=== PATIENT | male | born 1945 | race Caucasian/White ===

== ENCOUNTER 2016-10-01 19:46 | Emergency (ER) | payer OTHER, MEDICAID ==
[~2016-10-01] VITALS: Ht 162.6 cm; Wt 76.0 kg
[~2016-10-01 19:46] MED LIST: CIPR500T4 PO; CYCL-319 PO; FINA5TAB PO; HYDR-3498 PO; IBUP-1542 PO; NAPR-260 PO; TAMS-14 PO
[2016-10-01 19:48] VITALS: Ht 162.6 cm; Wt 76.0 kg
--- NOTE | 2016-10-01 20:21 | ERD ---
ER Documentation Chief Complaint Date/Time DATE: 10/01/16 TIME: 20:20 Chief Complaint blood in urine for past few days no pain HPI 71-year-old male presents here in emergency department for complaints of episodes of blood in the urine for the last 3 days. Patient has on and off episodes of hematuria. Patient denies any pain. Patient denies dysuria. Patient has history of BPH. Patient denies any obstruction in the urine. Patient denies any flank pain. Patient denies any abdominal pain. ROS All systems reviewed and are negative except as per history of present illness. Medications Home Meds Active Scripts Hydrocodone Bit-Acetaminophen* ([place]*) 5-325 Mg Tab, 1 TAB PO Q6 Y for PAIN, # 10 TAB Prov:OMAYRA WOODSON PA-C 07/15/15 Cyclobenzaprine Hcl* (Cyclobenzaprine Hcl*) 10 Mg Tablet, 10 MG PO TID, #15 TAB Prov:OMAYRA WOODSON PA-C 07/15/15 Naproxen* (Naprosyn*) 500 Mg Tablet, 500 MG PO BID Y for PAIN AND/OR INFLAMMATION, #30 TAB Prov:OMAYRA WOODSON PA-C 07/15/15 Ciprofloxacin Hcl* (Ciprofloxacin Hcl*) 500 Mg Tablet, 500 MG PO BID for 10 Days , TAB Prov:OMAYRA WOODSON PA-C 07/15/15 Ibuprofen* (Motrin*) 600 Mg Tab, 600 MG PO Q6, #30 TAB Prov:CHANTAL DE SOUZA PA-C 11/10/14 Reported Medications Finasteride* (Proscar*) 5 Mg Tablet, 5 MG PO DAILY, TAB 05/17/14 Tamsulosin Hcl* (Flomax*) 0.4 Mg Cap.er.24h, 0.4 MG PO HS, CAP 05/17/14 Allergies Allergies: Coded Allergies: No Known Allergies (Unverified Allergy, Unknown, 11/10/14) PMhx/Soc History of Surgery: No Anesthesia Reaction: No Hx Neurological Disorder: No Hx Respiratory Disorders: No Hx Cardiac Disorders: Yes (HTN) Hx Psychiatric Problems: No Hx Miscellaneous Medical Probl: Yes (BPH, gerd, hypercholesterolemia) Hx Alcohol Use: No Hx Substance Use: No Hx Tobacco Use: No Smoking Status: Never smoker FmHx Family History: No coronary disease, No diabetes, No other Physical Exam Vitals Vital Signs Date Time Temp Pulse Resp B/P Pulse Ox O2 Delivery O2 Flow Rate FiO2 10/01/16 19:48 97.8 59 18 176/80 97 Physical Exam GENERAL: The patient is well developed and appropriate for usual state of health, in no apparent distress. CHEST: Clear to auscultation bilaterally. There are no rales, wheezes or rhonchi. HEART: Regular rate and rhythm. No murmurs, clicks, rubs or gallops. No S3 or S4. ABDOMEN: Soft, nontender and nondistended. Good bowel sounds. No rebound or guarding. No gross peritonitis. No gross organomegaly or masses. No Sharma sign or McBurney point tenderness. BACK: No midline or flank tenderness. EXTREMITIES: Equal pulses bilaterally. There is no peripheral clubbing, cyanosis or edema. No focal swelling or erythema. Full range of motion. Grossly neurovascularly intact. NEURO: Alert and oriented. Cranial nerves 2-12 intact. Motor strength in all 4 extremities with 5/5 strength. Sensation grossly intact. Normal speech and gait. SKIN: There is no apparent rash or petechia. The skin is warm and dry. HEMATOLOGIC AND LYMPHATIC: There is no evidence of excessive bruising or lymphedema. No gross cervical, axillary, or inguinal lymphadenopathy. Result Diagram: 10/01/16203010/01/162030 Results 24 hrs Laboratory Tests Test 10/01/16 20:21 10/01/16 20:31 Urine Color LT. YELLOW Urine Clarity CLEAR Urine pH 6.0 Urine Specific [place] 1.015 Urine Ketones NEGATIVE Urine Nitrite NEGATIVE Urine Bilirubin NEGATIVE Urine Urobilinogen 0.2 E.U./dL Urine Leukocyte Esterase 3+ Urine Microscopic RBC >200/HPF Urine Microscopic WBC >200/HPF Urine Squamous Epithelial Cells FEW Urine Bacteria MANY Urine Hemoglobin 3+ Urine Glucose NEGATIVE% Urine Total Protein NEGATIVE White Blood Count 8.110^3/ul Red Blood Count 4.9010^6/ul Hemoglobin 15.3g/dl Hematocrit 42.7% Mean Corpuscular Volume 87.1fl Mean Corpuscular Hemoglobin 31.2pg Mean Corpuscular Hemoglobin Concent 35.8g/dl Red Cell Distribution Width 12.7% Platelet Count 60555^3/UL Mean Platelet Volume 11.7fl Neutrophils % 51.4% Lymphocytes % 34.6% Monocytes % 8.0% Eosinophils % 5.0% Basophils % 0.5% Nucleated Red Blood Cells % 0.0/100WBC Neutrophils # 4.210^3/ul Lymphocytes # 2.810^3/ul Monocytes # 0.710^3/ul Eosinophils # 0.410^3/ul Basophils # 0.010^3/ul Nucleated Red Blood Cells # 0.010^3/ul Sodium Level 143mmol/L Potassium Level 4.1mmol/L Chloride Level 112mmol/L Carbon Dioxide Level 27mmol/L Anion Gap 8 Blood Urea Nitrogen 19mg/dl Creatinine 0.82mg/dl Glucose Level 127mg/dl Calcium Level 9.4mg/dl Total Bilirubin 0.1mg/dl Direct Bilirubin 0.00mg/dl Indirect Bilirubin 0.1mg/dl Aspartate Amino Transf (AST/SGOT) 38IU/L Alanine Aminotransferase (ALT/SGPT) 51IU/L Alkaline Phosphatase 70IU/L Total Protein 7.4g/dl Albumin 4.1g/dl Globulin 3.30g/dl Albumin/Globulin Ratio 1.24 Rocephin was given for treatment of urinary tract infection. PROCEDURE: CT Abdomen and Pelvis without contrast. CLINICAL INDICATION: Abdominal pain and hematuria. TECHNIQUE: A CT scan of the abdomen and pelvis was performed without intravenous contrast. Coronal and sagittal reformatted images were generated. Images were reviewed on a high-resolution PACS workstation. CTDIvol: 9.81 mGy. DLP: 553.79 mGy-cm. One or more of the following dose reduction techniques were used: - Automated exposure control. - Adjustment of the mA and/or kV according to patient size. - Use of iterative reconstruction technique. COMPARISON: None. FINDINGS: The lung bases are clear. Evaluation of the abdominal and pelvic viscera is limited by the lack of oral and intravenous contrast. The liver is unremarkable. The gallbladder is normal in appearance. The common bile duct is not dilated. The spleen is not enlarged. No pancreatic lesion is identified and there is no pancreatic ductal dilatation. The adrenal glands are unremarkable. The kidneys are normal in size. There is minimal symmetric perinephric fat stranding, probably age-related. No hydronephrosis is seen. No urinary stone is identified. The small and large bowel are normal in caliber. There is no bowel wall thickening.There is mild to moderate sigmoid colon diverticulosis. The appendix is normal. The urinary bladder is unremarkable. The prostate gland is enlarged. No lymphadenopathy is identified. There is no ascites. No pneumoperitoneum is seen. There are mild arterial calcifications. No suspicious osseous lesion is idenitified. IMPRESSION: 1. No inflammation, mass, or lymphadenopathy. 2. Normal appendix. 3. No obstructive uropathy or urinary stone. 4. Enlarged prostate gland. Correlation with PSA level is recommended. 5. Mild to moderate sigmoid colon diverticulosis. 6. Mild atherosclerotic calcifications. 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 Patient is currently on medication for this. no kidney stones, no symptoms of any infected stone. There is low suspicion for abdominal emergencies at this time. Patients abdominal exam is normal at this time. Patients radiology exam does not show any abdominal emergencies at this time. There is low suspicion for appendicitis, cholecystitis, abdominal aortic aneurysms or peritonitis at this time. There is low suspicion for sepsis. Patient appears well and is hemodynamically stable. Disposition: Home. Condition: Stable Prescription ciprofloxacin, Pyridium. Instructions: Patient is advised to take medications as prescribed. Patient is advised to rest, increase fluid intake and do see urology specialist. Patient is advised that if symptoms are worse, severe abdominal pain, uncontrolled vomiting, high fever, severe flank pain, worst signs and symptoms, to return to the emergency department immediately. Otherwise, patient can follow up with primary care doctor in 5-7 days. Departure Diagnosis: Primary Impression: Cystitis Condition: Stable Patient Instructions: Cystitis Additional Instructions: : Patient is advised to take medications as prescribed. Patient is advised to rest, increase fluid intake and do see urology specialist. Patient is advised that if symptoms are worse, severe abdominal pain, uncontrolled vomiting, high fever, severe flank pain, worst signs and symptoms, to return to the emergency department immediately. Otherwise, patient can follow up with primary care doctor in 5-7 days. GEORGIE KEMP NP October 01, 2016 20:21
[2016-10-01 20:37] LABS: ADD SCAN DIFF NO
[2016-10-01 20:40] LABS: BASOPHILS % 0.5 % (0.0-2.0); EOSINOPHILS # 0.4 10^3/ul (0.0-0.5); HEMATOCRIT 42.7 % (42.0-52.0); HEMOGLOBIN 15.3 g/dl (14.0-18.0); LYMPHOCYTES # 2.8 10^3/ul (0.8-2.9); LYMPHOCYTES % 34.6 % (15.0-51.0); MEAN CORPUSCULAR HEMOGLOBIN 31.2 pg (29.0-33.0); MEAN CORPUSCULAR HGB CONC 35.8 g/dl (32.0-37.0); MEAN CORPUSCULAR VOLUME 87.1 fl (82.0-101.0); MEAN PLATELET VOLUME 11.7 fl (7.4-10.4); MONOCYTE # 0.7 10^3/ul (0.3-0.9); NEUTROPHIL # 4.2 10^3/ul (1.6-7.5); NEUTROPHILS % 51.4 % (39.0-77.0); PLATELET COUNT 203 10^3/UL (140-415); RED CELL DISTRIBUTION WIDTH 12.7 % (11.5-14.5); WHITE BLOOD COUNT 8.1 10^3/ul (4.8-10.8)
[2016-10-01 20:40] LABS: ADD UMIC YES; URINE BILIRUBIN (Dip) NEGATIVE (NEGATIVE); URINE BLOOD (Dip) 3+ (NEGATIVE); URINE COLOR LT. YELLOW (YELLOW); URINE GLUCOSE (Dip) NEGATIVE (NEGATIVE); URINE KETONES (Dip) NEGATIVE (NEGATIVE); URINE LEUKOCYTE ESTERASE (Dip) 3+ (NEGATIVE); URINE NITRITE (Dip) NEGATIVE (NEGATIVE); URINE TOTAL PROTEIN (Dip) NEGATIVE (NEGATIVE); URINE UROBILINOGEN (Dip) 0.2 E.U./dL (0.1-1.0)
[2016-10-01 21:02] LABS: ALBUMIN 4.1 g/dl (3.3-4.9)
[2016-10-01 21:03] LABS: POTASSIUM 4.1 mmol/L (3.5-5.1)
[2016-10-01 21:05] LABS: ALBUMIN/GLOBULIN RATIO 1.24; BILIRUBIN,INDIRECT 0.1 mg/dl (0-1.1); BILIRUBIN,TOTAL 0.1 mg/dl (0.2-1.3); CREATININE 0.82 mg/dl (0.61-1.24); TOTAL PROTEIN 7.4 g/dl (6.1-8.1)
[2016-10-01 21:06] LABS: CALCIUM 9.4 mg/dl (8.4-10.2)
[2016-10-01 21:09] LABS: BACTERIA,URINE MANY; SQUAMOUS EPITHELIAL CELL,UR FEW; URINE RBCS >200 /HPF (0)
--- NOTE | 2016-10-01 22:05 | RADRPT ---
PROCEDURE: CT Abdomen and Pelvis without contrast. CLINICAL INDICATION: Abdominal pain and hematuria. TECHNIQUE: A CT scan of the abdomen and pelvis was performed without intravenous contrast. Moraes l and sagittal reformatted images were generated. Images were reviewed on a high-resolution PACS wor kstation. CTDIvol: 9.81 mGy. DLP: 553.79 mGy-cm. One or more of the following dose reduction techniques were used: - Automated exposure control. - Adjustment of the mA and/or kV according to patient size. - Use of iterative reconstruction technique. COMPARISON: None. FINDINGS: The lung bases are clear. Evaluation of the abdominal and pelvic viscera is limited by the lack of oral and intravenous contra st. The liver is unremarkable. The gallbladder is normal in appearance. The common bile duct is not dila jony. The spleen is not enlarged. No pancreatic lesion is identified and there is no pancreatic ducta l dilatation. The adrenal glands are unremarkable. The kidneys are normal in size. There is minimal symmetric perinephric fat stranding, probably age-r elated. No hydronephrosis is seen. No urinary stone is identified. The small and large bowel are normal in caliber. There is no bowel wall thickening.There is mild to moderate sigmoid colon diverticulosis. The appendix is normal. The urinary bladder is unremarkable. The prostate gland is enlarged. No lymphadenopathy is identified. There is no ascites. No pneumoperitoneum is seen. There are mild a rterial calcifications. No suspicious osseous lesion is idenitified. IMPRESSION: 1. No inflammation, mass, or lymphadenopathy. 2. Normal appendix. 3. No obstructive uropathy or urinary stone. 4. Enlarged prostate gland. Correlation with PSA level is recommended. 5. Mild to moderate sigmoid colon diverticulosis. 6. Mild atherosclerotic calcifications. RPTAT: HTAR .Marlo Sutherland MD, MD Date Time Electronically viewed and signed by .Marlo Sutherland MD, on 10/01/2016 22:05 .R/
[2016-10-01] MEDS ORDERED: PHEN-538 PO (22:19)
[2016-10-01] MEDS ORDERED: CIPR500T4 PO (22:19)
[2016-10-01] MEDS ORDERED: CEFTRIAXONE 1 GM INJ IM ONE (22:30)
[2016-10-01 23:03] VITALS: BP 170/76; PULSE 63; RESP 16; TEMP 97.3
== END 2016-10-01 23:04 | disposition home or self-care (01) ==
LOC: FTE 19:46
DX: N30.90 Cystitis, unspecified without hematuria (principal); I10 Essential (primary) hypertension
CPT/HCPCS: 74176; 80053; 81001; 85025; J0696; 36415; 96372

== ENCOUNTER 2016-10-19 09:59 | Inpatient (IN) | payer OTHER, MEDICAID ==
[~2016-10-19] VITALS: Ht 157.5 cm; Wt 70.5 kg
[~2016-10-19 09:59] MED LIST changes: +PHEN-538 PO
[2016-10-19] MEDS ORDERED: ONDANSETRON 4 MG INJ IV STA (10:33)
[2016-10-19] MEDS ORDERED: morphine 4 MG/ML VIAL IV STA ×2 (10:33→19:15)
[2016-10-19] MEDS ORDERED: SOD CHLORIDE 0.9% 1,000 ML IV STA (10:33)
[2016-10-19] MEDS ORDERED: FENO145T19 PO (11:00)
--- NOTE | 2016-10-19 11:08 | RADRPT ---
PROCEDURE: Chest Radiograph. CLINICAL INDICATION: Abdominal pain TECHNIQUE: Single frontal chest radiograph. COMPARISON: Chest radiograph 05/17/2014 FINDINGS: Heart size is within normal limits. Atherosclerotic calcifications are present. No infiltrate or effusion is seen. The bones are intact. IMPRESSION: 1. No evidence of acute cardiopulmonary disease. 2. Atherosclerotic vascular disease. RPTAT: KK .Shaan Cabral MD, MD Date Time Electronically viewed and signed by .Shaan Cabral MD, on 10/19/2016 11:08 .B/
[2016-10-19 11:15] LABS: ADD SCAN DIFF NO
[2016-10-19 11:26] LABS: BASOPHILS % 0.3 % (0.0-2.0); EOSINOPHILS # 0.3 10^3/ul (0.0-0.5); EOSINOPHILS % 2.5 % (0.0-7.0); HEMATOCRIT 41.6 % (42.0-52.0); HEMOGLOBIN 14.2 g/dl (14.0-18.0); LYMPHOCYTES # 2.1 10^3/ul (0.8-2.9); LYMPHOCYTES % 16.5 % (15.0-51.0); MEAN CORPUSCULAR HEMOGLOBIN 29.8 pg (29.0-33.0); MEAN CORPUSCULAR HGB CONC 34.1 g/dl (32.0-37.0); MEAN CORPUSCULAR VOLUME 87.4 fl (82.0-101.0); MEAN PLATELET VOLUME 12.4 fl (7.4-10.4); MONOCYTE # 1.4 10^3/ul (0.3-0.9); MONOCYTES % 10.6 % (0.0-11.0); NEUTROPHILS % 69.4 % (39.0-77.0); PLATELET COUNT 198 10^3/UL (140-415); RED BLOOD COUNT 4.76 10^6/ul (4.70-6.10); RED CELL DISTRIBUTION WIDTH 13.2 % (11.5-14.5)
[2016-10-19 11:35] LABS: ADD UMIC YES; UR BILIRUBIN (Dip) NEGATIVE (NEGATIVE); UR BLOOD (Dip) TRACE (NEGATIVE); UR CLARITY SLIGHTLY CLOUDY (CLEAR); UR COLOR RED (YELLOW); UR GLUCOSE (Dip) NEGATIVE (NEGATIVE); UR KETONES (Dip) NEGATIVE (NEGATIVE); UR LEUKOCYTE ESTERASE (Dip) 3+ (NEGATIVE); UR NITRITE (Dip) NEGATIVE (NEGATIVE); UR TOTAL PROTEIN (Dip) NEGATIVE (NEGATIVE); UR UROBILINOGEN (Dip) 0.2 E.U./dL (0.1-1.0)
[2016-10-19 11:38] LABS: ALANINE AMINOTRANSFERASE 41 IU/L (13-69); ALBUMIN 4.3 g/dl (3.3-4.9); ALBUMIN/GLOBULIN RATIO 1.95; ALKALINE PHOSPHATASE 63 IU/L (42-121); ANION GAP 13 (8-16); ASPARTATE AMINO TRANSFERASE 24 IU/L (15-46); BILIRUBIN,INDIRECT 0.3 mg/dl (0-1.1); BILIRUBIN,TOTAL 0.3 mg/dl (0.2-1.3); BLOOD UREA NITROGEN 18 mg/dl (7-20); CALCIUM 9.4 mg/dl (8.4-10.2); CARBON DIOXIDE 23 mmol/L (21-31); CHLORIDE 111 mmol/L (97-110); CREATININE 0.87 mg/dl (0.61-1.24); GLUCOSE 102 mg/dl (70-220); POTASSIUM 4.1 mmol/L (3.5-5.1); SODIUM 143 mmol/L (135-144); TOTAL PROTEIN 6.5 g/dl (6.1-8.1)
--- NOTE | 2016-10-19 11:50 | RADRPT ---
PROCEDURE: CT scan of the abdomen and pelvis without IV contrast. CLINICAL INDICATION: Abdominal pain over 5 days. TECHNIQUE: Thin section axial, coronal and sagittal images were performed through the abdomen and pelvis without contrast. Radiation Dose: CTDI: 16 0.02 and DLP: 904.3 One or more of the following dose reduction techniques were used: - Automated exposure control. - Adjustment of the mA and/or kV according to patient size. Use of iterative reconstruction technique. COMPARISON: Chest x-ray 06/09/2016 06:18 a.m. FINDINGS: Soft tissues: Normal. Lungs and pleural spaces: There is peripheral atelectasis in the right and left lower lobes. The shubham ngs are overall hyperinflated and this may reflect an excellent inspiration. No pleural effusion is identified. Heart: The heart is normal in size. No pericardial effusion is identified. The liver, common bile duct and gallbladder: Normal. Gastrointestinal: There is no evidence of a hiatal hernia. The stomach is normal. The small bowel loops have a normal caliber. There are diverticula in the descending colon. There are diverticula mucosal thickening in the sigmoid colon with stranding in the pericolic fat consistent with divertic ulitis. No diverticular abscess or microperforation is identified. There is no evidence of pneumop eritoneum. The vermiform appendix is normal. There are bilateral inguinal hernias which contain fat. Pancreas: Normal. Kidneys, bladder and adrenal glands : Normal. Spleen: Normal. Lymph nodes: Normal. Reproductive system and pelvis : The seminal vesicles are normal. The prostate gland is enlarged me asuring 5.1 x 4.8 cm. There is a left varicocele. Bony elements: There are degenerative osteophytes in the thoracic and lumbar spine. There is modera te disk space narrowing at L1-2 the with ventral spondylosis. There is mild disk space narrowing an d ventral spondylosis at L2-3 and L3-4. There is moderately severe disk space narrowing at L4-5 and severe disk space narrowing at L5-S1 with bilateral bony nerve root canal stenosis at L5-S1. Vasculature: There are vascular calcifications in the abdominal aorta and common iliac arteries. IMPRESSION: 1. Acute diverticulitis of the sigmoid colon. 2. Diverticulosis of the descending colon. Normal vermiform appendix. 3. Enlarged prostate. Correlate with PSA level. 4. Left varicocele. 5. Bilateral inguinal hernias which contain fat. 6. Atherosclerotic vascular disease. 7. Findings were phoned to Dr. Colmenares. RPTAT:AAJJ Anthony Knox Physician Date Time Electronically viewed and signed by Anthony Knox, Physician on 10/19/2016 11:50 JM/
[2016-10-19 11:52] LABS: TROPONIN-I < 0.012 ng/ml (0.00-0.12)
[2016-10-19] MEDS ORDERED: AMPICILLIN/SULB 3 GM/NS (PMX) 100 ML IVPB ONE (12:00)
[2016-10-19 12:18] LABS: UR BACTERIA MODERATE; URINE RBCS 0-2 /HPF (0)
--- NOTE | 2016-10-19 13:49 | ERA ---
ER Documentation Chief Complaint Date/Time DATE: 10/19/16 TIME: 13:47 Chief Complaint Complains of abdominal x 3 days HPI Patient is a 71-year-old male with no medical problems who presents with abdominal pain. The abdominal pain started on Sunday. The pain is constant. He has pain with bowel movements. He has pain with urination which radiates into his back. He has no fevers. He has no vomiting or diarrhea. He tried ibuprofen for his pain. His doctor is Dr. Saleh. ROS All systems reviewed and are negative except as per history of present illness. Medications Home Meds Reported Medications Fenofibrate Nanocrystallized* (Fenofibrate*) 145 Mg Tablet, 145 MG PO DAILY, TAB 10/19/16 Finasteride* (Proscar*) 5 Mg Tablet, 5 MG PO DAILY, TAB 05/17/14 Tamsulosin Hcl* (Flomax*) 0.4 Mg Cap.er.24h, 0.4 MG PO HS, CAP 05/17/14 Discontinued Scripts Phenazopyridine Hcl* (Pyridium*) 200 Mg Tab, 200 MG PO TID Y for URINARY PAIN, # 6 TAB Prov:GEOGRIE KEMP NP 10/01/16 Ciprofloxacin Hcl* (Ciprofloxacin Hcl*) 500 Mg Tablet, 500 MG PO BID for 10 Days , TAB Prov:GEORGIE KEMP NP 10/01/16 Hydrocodone Bit-Acetaminophen* ([place]*) 5-325 Mg Tab, 1 TAB PO Q6 Y for PAIN, # 10 TAB Prov:OMAYRA WOODSON PA-C 07/15/15 Cyclobenzaprine Hcl* (Cyclobenzaprine Hcl*) 10 Mg Tablet, 10 MG PO TID, #15 TAB Prov:OMAYRA WOODSON PA-C 07/15/15 Naproxen* (Naprosyn*) 500 Mg Tablet, 500 MG PO BID Y for PAIN AND/OR INFLAMMATION, #30 TAB Prov:OMAYRA WOODSON PA-C 07/15/15 Ciprofloxacin Hcl* (Ciprofloxacin Hcl*) 500 Mg Tablet, 500 MG PO BID for 10 Days , TAB Prov:OMAYRA WOODSON PA-C 07/15/15 Ibuprofen* (Motrin*) 600 Mg Tab, 600 MG PO Q6, #30 TAB Prov:CHANTAL DE SOUZA PA-C 11/10/14 Allergies Allergies: Coded Allergies: No Known Allergies (Unverified Allergy, Unknown, 10/19/16) PMhx/Soc History of Surgery: No Anesthesia Reaction: No Hx Neurological Disorder: No Hx Respiratory Disorders: No Hx Cardiac Disorders: Yes (HTN) Hx Psychiatric Problems: No Hx Miscellaneous Medical Probl: Yes (BPH, gerd, hypercholesterolemia) Hx Alcohol Use: No Hx Substance Use: No Hx Tobacco Use: No Smoking Status: Never smoker FmHx Family History: No diabetes Physical Exam Vitals Vital Signs Date Time Temp Pulse Resp B/P Pulse Ox O2 Delivery O2 Flow Rate FiO2 10/19/16 12:00 61 20 129/67 98 Room Air 10/19/16 10:04 98.3 83 20 127/59 96 Physical Exam Const: Moderate distress secondary to pain Head: Atraumatic Eyes: Normal Conjunctiva ENT: Normal External Ears, Nose and Mouth. Neck: Full range of motion..~ No meningismus. Resp: Clear to auscultation bilaterally Cardio: Regular rate and rhythm, no murmurs Abd: Diffuse tenderness to palpation without rebound or guarding Skin: No petechiae or rashes Back: No midline or flank tenderness Ext: No cyanosis, or edema Neur: Awake and alert Psych: Normal Mood and Affect Result Diagram: 10/19/16 1050 10/19/16 1050 Results 24 hrs Laboratory Tests Test 10/19/16 10:50 White Blood Count 13.010^3/ul Red Blood Count 4.7610^6/ul Hemoglobin 14.2g/dl Hematocrit 41.6% Mean Corpuscular Volume 87.4fl Mean Corpuscular Hemoglobin 29.8pg Mean Corpuscular Hemoglobin Concent 34.1g/dl Red Cell Distribution Width 13.2% Platelet Count 40215^3/UL Mean Platelet Volume 12.4fl Neutrophils % 69.4% Lymphocytes % 16.5% Monocytes % 10.6% Eosinophils % 2.5% Basophils % 0.3% Nucleated Red Blood Cells % 0.0/100WBC Neutrophils # 9.010^3/ul Lymphocytes # 2.110^3/ul Monocytes # 1.410^3/ul Eosinophils # 0.310^3/ul Basophils # 0.010^3/ul Nucleated Red Blood Cells # 0.010^3/ul Urine Color RED Urine Clarity SLIGHTLY CLOUDY Urine pH 5.5 Urine Specific [place] >=1.030 Urine Ketones NEGATIVE Urine Nitrite NEGATIVE Urine Bilirubin NEGATIVE Urine Urobilinogen 0.2 E.U./dL Urine Leukocyte Esterase 3+ Urine Microscopic RBC 0-2/HPF Urine Microscopic WBC 10-25/HPF Urine Bacteria MODERATE Urine Hemoglobin TRACE Urine Glucose NEGATIVE% Urine Total Protein NEGATIVE Sodium Level 143mmol/L Potassium Level 4.1mmol/L Chloride Level 111mmol/L Carbon Dioxide Level 23mmol/L Anion Gap 13 Blood Urea Nitrogen 18mg/dl Creatinine 0.87mg/dl Glucose Level 102mg/dl Calcium Level 9.4mg/dl Total Bilirubin 0.3mg/dl Direct Bilirubin 0.00mg/dl Indirect Bilirubin 0.3mg/dl Aspartate Amino Transf (AST/SGOT) 24IU/L Alanine Aminotransferase (ALT/SGPT) 41IU/L Alkaline Phosphatase 63IU/L Troponin I < 0.012ng/ml Total Protein 6.5g/dl Albumin 4.3g/dl Globulin 2.20g/dl Albumin/Globulin Ratio 1.95 Lipase 106U/L Current Medications Medications (Trade) Dose Ordered Sig/Aaliyah Route PRN Reason Start Time Stop Time Status Last Admin Dose Admin Sodium Chloride (NS) 1,000 ml @ 1,000 mls/hr Q1H STAT IV 10/19/16 10:33 10/19/16 11:32 DC 10/19/16 11:32 Morphine Sulfate (morphine) 4 mg ONCE STAT IV 10/19/16 10:33 10/19/16 10:35 DC 10/19/16 11:34 Ondansetron HCl 4 mg 4 mg ONCE STAT IV 10/19/16 10:33 10/19/16 10:35 DC 10/19/16 11:32 Ampicillin Sodium/ Sulbactam Sodium (Unasyn 3gm/NS (Pmx)) 100 ml @ 100 mls/hr ONCE ONCE IVPB 10/19/16 12:00 10/19/16 12:59 DC 10/19/16 12:22 Procedures/MDM CT scan shows acute diverticulitis and enlarged prostate per radiology. Patient is a 71-year-old male presents with acute abdominal pain. He was found to have acute diverticulitis. He has an elevated white blood cell count as well. The patient was given IV antibiotics. The patient will need admission to the hospital for further treatment given his age. We are attempting to obtain his insurance information and the patient may need to be transferred to another facility. At this point I doubt bowel obstruction, sepsis, appendicitis , or pancreatitis. Departure Diagnosis: Primary Impression: Diverticulitis Qualified Code: K57.92 - Diverticulitis of intestine without perforation or abscess without bleeding, unspecified part of intestinal tract Additional Impression: Abdominal pain Qualified Code: R10.84 - Generalized abdominal pain Condition: Fair LIBERTAD FELIX MD Oct 19, 2016 13:49
[2016-10-19] MEDS ORDERED: SOD CHLORIDE 0.9% 1,000 ML IV SCH (16:28)
--- NOTE | 2016-10-19 16:28 | EN ---
Date/Time of Note Date/Time of Note DATE: 10/19/16 TIME: 16:26 ER Progress Note This patient was signed out to me by her previous physician, . This is a 71-year-old male presents to the ER for abdominal pain and was diagnosed with diverticulitis. The patient was scheduled to be transferred however we have not heard back from the transferring insurance company. We have attempted multiple times over the past 2 hours with no response. The patient will be admitted to the panel physician, HERBERT Parnell DO Oct 19, 2016 16:27
[2016-10-19] MEDS ORDERED: ONDANSETRON 4 MG INJ IV PRN ×2 (16:30→20:00)
[2016-10-19] MEDS ORDERED: ACETAMINOPHEN 325 MG TAB PO PRN (16:30)
[2016-10-19 18:25] VITALS: TEMP 98.1
[2016-10-19] MEDS ORDERED: NACL 0.9% 3 ML SYG IV SCH (20:00)
[2016-10-19] MEDS ORDERED: HYDROmorphONE 1 MG/ML SYG IV PRN (20:00)
[2016-10-19 20:05] VITALS: BP 176/82; PULSE 62; RESP 18
[2016-10-19] MEDS: SOD CHLORIDE 0.9% 1,000 ML IV SCH ×2 (20:42→23:00)
[2016-10-19 21:36] VITALS: BP 141/73; PULSE 66; RESP 18
[2016-10-19] MEDS: CIPROFLOXACIN 400MG/D5W 200 ML IVPB SCH (22:41)
[2016-10-19] MEDS: metroNIDAZOLE 500 MG/NS (PMX) 100 ML IVPB SCH (23:55)
[2016-10-20] MEDS: HYDROmorphONE 1 MG/ML SYG IV PRN ×4 (01:05→20:32)
--- NOTE | 2016-10-20 01:06 | HP ---
Date/Time of Note Date/Time of Note DATE: 10/20/16 TIME: 01:02 Assessment/Plan VTE Prophylaxis VTE Prophylaxis Intervention: ambulation, SCD's Lines/Catheters IV [facility]ter [facility] (from [facility]): Peripheral IV Assessment/Plan Chief Complaint/Hosp Course This is a 71-year-old male being admitted to the [facility] floor for: #1 acute diverticulitis: CT scan shows acute diverticulitis of sigmoid colon. At the current time we will keep the patient n.p.o. IV fluid hydration. Patient did receive a dose of antibiotics in the ED. At the current time will start patient on Cipro and Flagyl IV. IV pain control #2 urinary tract infection: Urinalysis positive for leukoesterase. At the current time patient denies any fevers and he deferred rectal exam at this time. Prostatitis is on the differential as well though based on his symptoms I feel like is less likely. He is already on Cipro and Flagyl for #1 we will continue these medications. Await urine culture. #3 BPH: Patient states that he is being followed as an outpatient regarding his prostate issues. Continue outpatient follow-up #4 elevated blood pressure: Patient denies any history of blood pressure as an outpatient and he has recently seen his primary care doctor where his blood pressure was normal. Will continue to monitor his blood pressures during his hospital stay and start any antihypertensives as needed. #5 DVT GI prophylaxis: SCDs, Protonix. Further treatment strategy as per the clinical course. Problems: HPI/ROS Admit Date/Time Admit Date/Time Oct 19, 2016 at 16:28 Hx of Present Illness Chief complaint: Abdominal pain Patient is a 71-year-old male who presents with abdominal pain. The abdominal pain started on Sunday. The pain is constant. He has pain with bowel movements. He has pain with urination which radiates into his back. He has no fevers. He has no vomiting or diarrhea. He tried ibuprofen for his pain. He denies any blood in the stool. Allergies: NKDA Medications: See JUL ROS Const: Per HPI Eyes : No pain discharge or redness or change in visual acuity ENT: No pain, sore throat, congestion, congestion, dysphagia or discharge Respiratory: No shortness of breath, cough, sputum, wheezing, or pleuritic pain Cardiovascular: No chest pain, palpitation, PND, or edema GI : As per HPI Genitourinary: As per HPI Musculoskeletal: No joint pain, back pain, neck pain, restricted range of motion in neck or joints Skin: No rash, bruising or hives Neuro: No headache, dizziness, syncope, seizure, focal weakness Endocrine: No polyuria, polydipsia, temperature intolerance Psych: No hallucination, depression, anxiety or suicidal ideation PMH/Family/Social Past Medical History BPH Past Surgical History Past Surgical Hx: no surgical history Family History Significant Family History: no pertinent family hx Social History Alcohol Use: none Smoking Status: Former smoker Drug Use: none Exam/Review of Systems Vital Signs Vitals Vital Signs Date Time Temp Pulse Resp B/P Pulse Ox O2 Delivery O2 Flow Rate FiO2 10/19/16 21:36 97.4 66 18 141/73 95 Room Air Intake and Output 10/19/16 10/19/16 10/20/16 15:00 23:00 07:00 Intake Total 1000 ml Balance 1000 ml Exam Exam General: This is a 71-year-old male laying in bed in mild distress HEENT: Atraumatic, normocephalic. The pupils are equal, round and reactive. Extraocular motor are intact Neck: Supple with full range of motion. No rigidity or meningismus Chest: Nontender Lungs: Clear to auscultation bilaterally no crackles rales or wheezing Heart: Normal S1-S2, Regular rhythm and rate. No murmur, S3, or S4 Abdomen: Soft, tender to palpation of the left lower abdominal quadrant, tender to palpation over the suprapubic region, no costovertebral angle tenderness. Genitourinary: Patient deferred rectal examination Extremities: Normal to inspection, no edema no cyanosis Neurologic: Normal mental status, speech normal, cranial nerves II through XII are intact, motor and sensory are intact, no focal weakness Additional Comments PROCEDURE: CT scan of the abdomen and pelvis without IV contrast. CLINICAL INDICATION: Abdominal pain over 5 days. TECHNIQUE: Thin section axial, coronal and sagittal images were performed through the abdomen and pelvis without contrast. Radiation Dose: CTDI: 16 0.02 and DLP: 904.3 One or more of the following dose reduction techniques were used: - Automated exposure control. - Adjustment of the mA and/or kV according to patient size. Use of iterative reconstruction technique. COMPARISON: Chest x-ray 06/09/2016 06:18 a.m. FINDINGS: Soft tissues: Normal. Lungs and pleural spaces: There is peripheral atelectasis in the right and left lower lobes. The lungs are overall hyperinflated and this may reflect an excellent inspiration. No pleural effusion is identified. Heart: The heart is normal in size. No pericardial effusion is identified. The liver, common bile duct and gallbladder: Normal. Gastrointestinal: There is no evidence of a hiatal hernia. The stomach is normal. The small bowel loops have a normal caliber. There are diverticula in the descending colon. There are diverticula mucosal thickening in the sigmoid colon with stranding in the pericolic fat consistent with diverticulitis. No diverticular abscess or microperforation is identified. There is no evidence of pneumoperitoneum. The vermiform appendix is normal. There are bilateral inguinal hernias which contain fat. Pancreas: Normal. Kidneys, bladder and adrenal glands : Normal. Spleen: Normal. Lymph nodes: Normal. Reproductive system and pelvis : The seminal vesicles are normal. The prostate gland is enlarged measuring 5.1 x 4.8 cm. There is a left varicocele. Bony elements: There are degenerative osteophytes in the thoracic and lumbar spine. There is moderate disk space narrowing at L1-2 the with ventral spondylosis. There is mild disk space narrowing and ventral spondylosis at L2- 3 and L3-4. There is moderately severe disk space narrowing at L4-5 and severe disk space narrowing at L5-S1 with bilateral bony nerve root canal stenosis at L5-S1. Vasculature: There are vascular calcifications in the abdominal aorta and common iliac arteries. IMPRESSION: 1. Acute diverticulitis of the sigmoid colon. 2. Diverticulosis of the descending colon. Normal vermiform appendix. 3. Enlarged prostate. Correlate with PSA level. 4. Left varicocele. 5. Bilateral inguinal hernias which contain fat. 6. Atherosclerotic vascular disease. 7. Findings were phoned to Dr. Colmenares. RPTAT:AAJJ Physician Nael Date Time Electronically viewed and signed by Physician Nael on 10/19/2016 11:50 ROCEDURE: Chest Radiograph. CLINICAL INDICATION: Abdominal pain TECHNIQUE: Single frontal chest radiograph. COMPARISON: Chest radiograph 05/17/2014 FINDINGS: Heart size is within normal limits. Atherosclerotic calcifications are present. No infiltrate or effusion is seen. The bones are intact. IMPRESSION: 1. No evidence of acute cardiopulmonary disease. 2. Atherosclerotic vascular disease. RPTAT: KK .Shaan Cabral MD, Date Time Electronically viewed and signed by .Shaan Cabral MD, on 2016 11:08 Labs Result Diagram: 10/19/16 1050 10/19/16 1050 Medications Medications Current Medications Sodium Chloride 1,000 ml @ 80 mls/hr [id number] IV ; Start 10/19/16 at 16:28; Stop 10/20/16 at 04:57 Sodium Chloride (NS) 1,000 ml @ 100 mls/hr Q10H IV Last administered on 20:42; Admin Dose 100 MLS/HR; Start 10/19/16 at 23:00 Ondansetron HCl (Zofran Inj) 4 mg Q6H PRN IV NAUSEA AND/OR VOMITING; Start at 20:00 Pantoprazole 40 mg 40 mg DAILY@06 IV ; Start 10/20/16 at 06:00 Ciprofloxacin/ Dextrose 200 ml @ 200 mls/hr Q12 IVPB Last administered on 10/19 22:41; Admin Dose 200 MLS/HR; Start 10/19/16 at 23:00 Metronidazole (Flagyl 500 Mg (Pmx)) 100 ml @ 100 mls/hr Q8 IVPB Last administered on 10/19/16 23:55; Admin Dose 100 MLS/HR; Start 10/19/16 at 23:00 Hydromorphone HCl (Dilaudid) 1 mg Q4H PRN IV PAIN; Start 10/19/16 at 22:30 TAMMIE TERRAZAS Oct 20, 2016 01:06
[2016-10-20 02:03] VITALS: Ht 157.5 cm; Wt 70.5 kg
[2016-10-20] MEDS: metroNIDAZOLE 500 MG/NS (PMX) 100 ML IVPB SCH ×3 (05:10→22:31)
[2016-10-20] MEDS: PANTOPRAZOLE 40 MG INJ IV SCH (05:10)
[2016-10-20] MEDS ORDERED: ACETAMINOPHEN 325 MG TAB PO ONE (05:30)
[2016-10-20 05:47] LABS: ADD SCAN DIFF NO
[2016-10-20 06:13] LABS: BASOPHILS % 0.3 % (0.0-2.0); EOSINOPHILS # 0.3 10^3/ul (0.0-0.5); EOSINOPHILS % 2.3 % (0.0-7.0); HEMATOCRIT 40.3 % (42.0-52.0); LYMPHOCYTES # 2.2 10^3/ul (0.8-2.9); LYMPHOCYTES % 17.3 % (15.0-51.0); MEAN CORPUSCULAR HEMOGLOBIN 30.7 pg (29.0-33.0); MEAN CORPUSCULAR HGB CONC 34.7 g/dl (32.0-37.0); MEAN CORPUSCULAR VOLUME 88.4 fl (82.0-101.0); MEAN PLATELET VOLUME 12.5 fl (7.4-10.4); MONOCYTE # 1.2 10^3/ul (0.3-0.9); MONOCYTES % 8.9 % (0.0-11.0); NEUTROPHIL # 9.1 10^3/ul (1.6-7.5); NEUTROPHILS % 70.7 % (39.0-77.0); PLATELET COUNT 193 10^3/UL (140-415); RED BLOOD COUNT 4.56 10^6/ul (4.70-6.10); RED CELL DISTRIBUTION WIDTH 13.1 % (11.5-14.5); WHITE BLOOD COUNT 12.9 10^3/ul (4.8-10.8)
[2016-10-20 07:03] LABS: ALBUMIN/GLOBULIN RATIO 1.6; BILIRUBIN,INDIRECT 0.6 mg/dl (0-1.1); BILIRUBIN,TOTAL 0.6 mg/dl (0.2-1.3); CALCIUM 8.9 mg/dl (8.4-10.2); CREATININE 0.8 mg/dl (0.61-1.24); MAGNESIUM 1.8 mg/dl (1.7-2.5); POTASSIUM 4.5 mmol/L (3.5-5.1); TOTAL PROTEIN 6.5 g/dl (6.1-8.1)
[2016-10-20 07:35] VITALS: BP 122/60; RESP 18
[2016-10-20] MEDS: SOD CHLORIDE 0.9% 1,000 ML IV SCH ×2 (09:00→13:31)
[2016-10-20] MEDS: CIPROFLOXACIN 400MG/D5W 200 ML IVPB SCH ×2 (09:26→20:33)
[2016-10-20 14:23] VITALS: BP 121/66; PULSE 59
[2016-10-20 20:04] VITALS: BP 133/67; RESP 20
[2016-10-21] MEDS: PANTOPRAZOLE 40 MG INJ IV SCH (05:17)
[2016-10-21] MEDS: SOD CHLORIDE 0.9% 1,000 ML IV SCH ×3 (05:18→20:42)
[2016-10-21] MEDS: metroNIDAZOLE 500 MG/NS (PMX) 100 ML IVPB SCH ×3 (05:18→22:28)
[2016-10-21 06:23] LABS: ADD SCAN DIFF NO
[2016-10-21 06:31] LABS: BASOPHILS % 0.3 % (0.0-2.0); EOSINOPHILS # 0.2 10^3/ul (0.0-0.5); EOSINOPHILS % 1.8 % (0.0-7.0); HEMATOCRIT 39.1 % (42.0-52.0); HEMOGLOBIN 13.7 g/dl (14.0-18.0); LYMPHOCYTES # 2.5 10^3/ul (0.8-2.9); LYMPHOCYTES % 21.3 % (15.0-51.0); MEAN CORPUSCULAR HEMOGLOBIN 30.8 pg (29.0-33.0); MEAN CORPUSCULAR VOLUME 87.9 fl (82.0-101.0); MEAN PLATELET VOLUME 12.5 fl (7.4-10.4); MONOCYTE # 1.1 10^3/ul (0.3-0.9); MONOCYTES % 9.1 % (0.0-11.0); NEUTROPHIL # 7.9 10^3/ul (1.6-7.5); NEUTROPHILS % 67.2 % (39.0-77.0); PLATELET COUNT 181 10^3/UL (140-415); RED BLOOD COUNT 4.45 10^6/ul (4.70-6.10); RED CELL DISTRIBUTION WIDTH 12.8 % (11.5-14.5); WHITE BLOOD COUNT 11.7 10^3/ul (4.8-10.8)
[2016-10-21 06:47] LABS: CHOL/HDL RATIO 4.4 RATIO; MAGNESIUM 1.9 mg/dl (1.7-2.5); PHOSPHORUS 3.1 mg/dl (2.5-4.9)
[2016-10-21 06:49] LABS: ALBUMIN 3.8 g/dl (3.3-4.9); BILIRUBIN,INDIRECT 0.6 mg/dl (0-1.1); BILIRUBIN,TOTAL 0.6 mg/dl (0.2-1.3); CALCIUM 8.7 mg/dl (8.4-10.2); CREATININE 0.8 mg/dl (0.61-1.24); TOTAL PROTEIN 6.2 g/dl (6.1-8.1)
[2016-10-21 06:50] LABS: ALBUMIN/GLOBULIN RATIO 1.58
[2016-10-21 07:19] LABS: THYROID STIMULATING HORMONE 2.77 MIU/L (0.465-4.680)
[2016-10-21] MEDS: CIPROFLOXACIN 400MG/D5W 200 ML IVPB SCH ×2 (08:04→20:42)
[2016-10-21 08:05] VITALS: BP 141/65; RESP 18
--- NOTE | 2016-10-21 08:47 | PN ---
Date/Time of Note Date/Time of Note DATE: 10/21/16 TIME: 08:45 Assessment/Plan VTE Prophylaxis VTE Prophylaxis Intervention: heparin Lines/Catheters IV [facility] Saline Lock Assessment/Plan Problems: (1) BPH (benign prostatic hyperplasia) Status: Chronic Comment: Resume medications for this. Qualifiers: Prostatic enlargement morphology: non-nodular Lower urinary tract symptom presence: symptoms present Qualified Code: N40.1 - Benign non-nodular prostatic hyperplasia with lower urinary tract symptoms (2) Gastroesophageal reflux disease Status: Chronic Comment: Continue proton pump inhibitor therapy. Stable without complications Qualifiers: Esophagitis presence: without esophagitis Qualified Code: K21.9 - Gastroesophageal reflux disease without esophagitis (3) Hyperlipidemia Status: Chronic Comment: Noted. Continue statin therapy. Qualifiers: Hyperlipidemia type: pure hypercholesterolemia Qualified Code: E78.00 - Pure hypercholesterolemia (4) Essential hypertension Status: Chronic Comment: Normotensive at this time continue treatment. (5) Diverticulitis Status: Acute Comment: He is responding well to the IV antibiotic therapy. And then added metronidazole for completion of spectrum coverage. Continue close observation. Can advance to clear liquid diet. Qualifiers: Diverticulitis site: unspecified part of intestinal tract Diverticulitis bleeding: without bleeding Diverticulitis complication: without perforation or abscess Qualified Code: K57.92 - Diverticulitis of intestine without perforation or abscess without bleeding, unspecified part of intestinal tract Subjective 24 Hr Interval Summary Free Text/Dictation Vianey Rios gentleman sitting in chair. He reports he is starting to feel better. Constitutional: improved (No further fevers chills or sweats) Respiratory: no complaints Cardiovascular: no complaints Gastrointestinal: pain (Reports the pain is less and now more localized left lower quadrant also complains of some constipation) Genitourinary: no complaints Musculoskeletal: no complaints Exam/Review of Systems Vital Signs Vitals Vital Signs Date Time Temp Pulse Resp B/P Pulse Ox O2 Delivery O2 Flow Rate FiO2 10/21/16 08:05 97.5 60 18 141/65 97 10/19/16 21:36 Room Air Intake and Output 10/20/16 10/20/16 10/21/16 15:00 23:00 07:00 Intake Total 650 ml 500 ml 900 ml Output Total 1700 ml Balance 650 ml -1200 ml 900 ml Exam Constitutional: alert, oriented Neck: non-tender, supple Respiratory: clear to auscultation, normal air movement Cardiovascular: nl pulses, regular rate and rhythm Gastrointestinal: nl liver, spleen, soft, tender (Non-rebound left lower quadrant tenderness) Extremities: normal pulses Results Result Diagram: 10/21/1640 10/21/16 0540 Results 24 hrs Laboratory Tests Test 10/21/16 05:40 White Blood Count 11.7 H Red Blood Count 4.45 L Hemoglobin 13.7 L Hematocrit 39.1 L Mean Corpuscular Volume 87.9 Mean Corpuscular Hemoglobin 30.8 Mean Corpuscular Hemoglobin Concent 35.0 Red Cell Distribution Width 12.8 Platelet Count 181 Mean Platelet Volume 12.5 H Neutrophils % 67.2 Lymphocytes % 21.3 Monocytes % 9.1 Eosinophils % 1.8 Basophils % 0.3 Nucleated Red Blood Cells % 0.0 Neutrophils # 7.9 H Lymphocytes # 2.5 Monocytes # 1.1 H Eosinophils # 0.2 Basophils # 0.0 Nucleated Red Blood Cells # 0.0 Sodium Level 139 Potassium Level 4.0 Chloride Level 104 Carbon Dioxide Level 25 Anion Gap 14 Blood Urea Nitrogen 17 Creatinine 0.80 Glucose Level 75 Calcium Level 8.7 Phosphorus Level 3.1 Magnesium Level 1.9 Total Bilirubin 0.6 Direct Bilirubin 0.00 Indirect Bilirubin 0.6 Aspartate Amino Transf (AST/SGOT) 27 Alanine Aminotransferase (ALT/SGPT) 34 Alkaline Phosphatase 55 Total Protein 6.2 Albumin 3.8 Globulin 2.40 Albumin/Globulin Ratio 1.58 Triglycerides Level 70 Cholesterol Level 160 LDL Cholesterol, Calculated 110 HDL Cholesterol 36 Cholesterol/HDL Ratio 4.4 Thyroid Stimulating Hormone (TSH) 2.770 Free Thyroxine 1.11 Medications Medications Current Medications Sodium Chloride (NS) 1,000 ml @ 100 mls/hr Q10H IV Last administered on 05:18; Admin Dose 100 MLS/HR; Start 10/19/16 at 23:00 Ondansetron HCl (Zofran Inj) 4 mg Q6H PRN IV NAUSEA AND/OR VOMITING; Start at 20:00 Pantoprazole 40 mg 40 mg DAILY@06 IV Last administered on 10/21/16 05:17; Admin Dose 40 MG; Start 10/20/16 at 06:00 Ciprofloxacin/ Dextrose 200 ml @ 200 mls/hr Q12 IVPB Last administered on 10/21 08:04; Admin Dose 200 MLS/HR; Start 10/19/16 at 23:00 Metronidazole (Flagyl 500 Mg (Pmx)) 100 ml @ 100 mls/hr Q8 IVPB Last administered on 10/21/16 05:18; Admin Dose 100 MLS/HR; Start 10/19/16 at 23:00 Hydromorphone HCl (Dilaudid) 1 mg Q4H PRN IV PAIN Last administered on 20:32; Admin Dose 1 MG; Start 10/19/16 at 22:30 CORAL GILBERT MD Oct 21, 2016 08:47
[2016-10-21] MEDS ORDERED: NA PHOSPHATE/BIPHOS 133 ML ENEMA PR ONE (09:00)
[2016-10-21] MEDS: metroNIDAZOLE 500 MG TAB PO SCH ×2 (09:00→13:45)
[2016-10-21] MEDS: FINASTERIDE 5 MG TAB PO SCH (09:45)
[2016-10-21] MEDS: FENOFIBRATE 145 MG TAB PO SCH (09:45)
[2016-10-21] MEDS: HYDROmorphONE 1 MG/ML SYG IV PRN ×2 (13:17→20:52)
[2016-10-21 20:01] VITALS: BP 170/79; RESP 18
[2016-10-21] MEDS: TAMSULOSIN (SR) 0.4 MG CAP PO SCH (20:42)
[2016-10-21 20:58] VITALS: BP 161/74; PULSE 59; RESP 16
[2016-10-22] MEDS: SOD CHLORIDE 0.9% 1,000 ML IV SCH ×3 (01:00→21:54)
[2016-10-22] MEDS: HYDROmorphONE 1 MG/ML SYG IV PRN (04:47)
[2016-10-22] MEDS: PANTOPRAZOLE 40 MG INJ IV SCH (05:36)
[2016-10-22] MEDS: metroNIDAZOLE 500 MG/NS (PMX) 100 ML IVPB SCH (05:36)
[2016-10-22 06:42] LABS: ADD SCAN DIFF NO
[2016-10-22 07:02] LABS: BASOPHILS % 0.3 % (0.0-2.0); EOSINOPHILS # 0.3 10^3/ul (0.0-0.5); EOSINOPHILS % 3.5 % (0.0-7.0); HEMATOCRIT 38.2 % (42.0-52.0); LYMPHOCYTES # 1.7 10^3/ul (0.8-2.9); LYMPHOCYTES % 22.5 % (15.0-51.0); MEAN PLATELET VOLUME 12.6 fl (7.4-10.4); MONOCYTE # 0.6 10^3/ul (0.3-0.9); MONOCYTES % 8.5 % (0.0-11.0); NEUTROPHIL # 4.9 10^3/ul (1.6-7.5); NEUTROPHILS % 64.8 % (39.0-77.0); PLATELET COUNT 178 10^3/UL (140-415); RED BLOOD COUNT 4.34 10^6/ul (4.70-6.10); RED CELL DISTRIBUTION WIDTH 12.6 % (11.5-14.5); WHITE BLOOD COUNT 7.5 10^3/ul (4.8-10.8)
[2016-10-22 07:18] LABS: ALBUMIN 3.9 g/dl (3.3-4.9); ALBUMIN/GLOBULIN RATIO 1.69; BILIRUBIN,INDIRECT 0.4 mg/dl (0-1.1); BILIRUBIN,TOTAL 0.4 mg/dl (0.2-1.3); CALCIUM 8.3 mg/dl (8.4-10.2); CREATININE 0.74 mg/dl (0.61-1.24); TOTAL PROTEIN 6.2 g/dl (6.1-8.1)
[2016-10-22 07:45] VITALS: BP 132/68; RESP 18
--- NOTE | 2016-10-22 08:00 | PN ---
Date/Time of Note Date/Time of Note DATE: 10/22/16 TIME: 07:58 Assessment/Plan VTE Prophylaxis VTE Prophylaxis Intervention: heparin Lines/Catheters IV C[facility]ter Type (from [facility]): Peripheral IV Assessment/Plan Problems: (1) Diverticulitis Status: Acute Comment: He is improving with antibiotic therapy. He can either be late discharge today or more likely tomorrow morning with outpatient follow-up. Ultimately he will need GI tract evaluation. Please note from the emergency room despite being admitted for diverticulitis blood cultures were not performed. Qualifiers: Diverticulitis site: unspecified part of intestinal tract Diverticulitis bleeding: without bleeding Diverticulitis complication: without perforation or abscess Qualified Code: K57.92 - Diverticulitis of intestine without perforation or abscess without bleeding, unspecified part of intestinal tract (2) Essential hypertension Status: Chronic Comment: Well-controlled. (3) Hyperlipidemia Status: Chronic Comment: On appropriate therapy. Qualifiers: Hyperlipidemia type: pure hypercholesterolemia Qualified Code: E78.00 - Pure hypercholesterolemia (4) BPH (benign prostatic hyperplasia) Status: Chronic Comment: On therapeutics and controlled. Qualifiers: Prostatic enlargement morphology: non-nodular Lower urinary tract symptom presence: symptoms present Qualified Code: N40.1 - Benign non-nodular prostatic hyperplasia with lower urinary tract symptoms Subjective 24 Hr Interval Summary Free Text/Dictation Patient reports that he is taking p.o. clear liquids without difficulty. Reports abdominal pain is improved. Successful bowel movement. Constitutional: no complaints (No fevers chills or sweats) Respiratory: no complaints Cardiovascular: no complaints Gastrointestinal: pain (Pain persists but is much less) Genitourinary: no complaints Exam/Review of Systems Vital Signs Vitals Vital Signs Date Time Temp Pulse Resp B/P Pulse Ox O2 Delivery O2 Flow Rate FiO2 10/22/16 07:45 97.5 71 18 132/68 98 10/21/16 20:58 Room Air Intake and Output 10/21/16 10/21/16 10/22/16 15:00 23:00 07:00 Intake Total 300 ml 2100 ml 1410 ml Output Total 200 ml 1000 ml Balance 300 ml 1900 ml 410 ml Exam Constitutional: alert, oriented Respiratory: clear to auscultation, normal air movement Cardiovascular: nl pulses, regular rate and rhythm Gastrointestinal: nl liver, spleen, soft, tender (Tender left lower quadrant is significantly less than yesterday without rebound) Results Result Diagram: 10/22/16 0538 10/22/16 0538 Results 24 hrs Laboratory Tests Test 10/22/16 05:38 White Blood Count 7.5 # Red Blood Count 4.34 L Hemoglobin 13.0 L Hematocrit 38.2 L Mean Corpuscular Volume 88.0 Mean Corpuscular Hemoglobin 30.0 Mean Corpuscular Hemoglobin Concent 34.0 Red Cell Distribution Width 12.6 Platelet Count 178 Mean Platelet Volume 12.6 H Neutrophils % 64.8 Lymphocytes % 22.5 Monocytes % 8.5 Eosinophils % 3.5 Basophils % 0.3 Nucleated Red Blood Cells % 0.0 Neutrophils # 4.9 Lymphocytes # 1.7 Monocytes # 0.6 Eosinophils # 0.3 Basophils # 0.0 Nucleated Red Blood Cells # 0.0 Sodium Level 135 Potassium Level 4.0 Chloride Level 102 Carbon Dioxide Level 27 Anion Gap 10 Blood Urea Nitrogen 13 Creatinine 0.74 Glucose Level 90 Calcium Level 8.3 L Total Bilirubin 0.4 Direct Bilirubin 0.00 Indirect Bilirubin 0.4 Aspartate Amino Transf (AST/SGOT) 42 # Alanine Aminotransferase (ALT/SGPT) 45 Alkaline Phosphatase 52 Total Protein 6.2 Albumin 3.9 Globulin 2.30 Albumin/Globulin Ratio 1.69 Medications Medications Current Medications Sodium Chloride (NS) 1,000 ml @ 100 mls/hr Q10H IV Last administered on 20:42; Admin Dose 100 MLS/HR; Start 10/19/16 at 23:00 Ondansetron HCl (Zofran Inj) 4 mg Q6H PRN IV NAUSEA AND/OR VOMITING Last administered on 10/22/16 04:46; Admin Dose 4 MG; Start 10/19/16 at 20:00 Pantoprazole 40 mg 40 mg DAILY@06 IV Last administered on 10/22/16 05:36; Admin Dose 40 MG; Start 10/20/16 at 06:00 Ciprofloxacin/ Dextrose 200 ml @ 200 mls/hr Q12 IVPB Last administered on 10/21 20:42; Admin Dose 200 MLS/HR; Start 10/19/16 at 23:00 Metronidazole (Flagyl 500 Mg (Pmx)) 100 ml @ 100 mls/hr Q8 IVPB Last administered on 10/22/16 05:36; Admin Dose 100 MLS/HR; Start 10/19/16 at 23:00 Hydromorphone HCl (Dilaudid) 1 mg Q4H PRN IV PAIN Last administered on 04:47; Admin Dose 1 MG; Start 10/19/16 at 22:30 Fenofibrate (Tricor) 145 mg DAILY PO Last administered on 10/21/16 09:45; Admin Dose 145 MG; Start 10/21/16 at 09:00 Finasteride (Proscar) 5 mg DAILY PO Last administered on 10/21/16 09:45; Admin Dose 5 MG; Start 10/21/16 at 09:00 Tamsulosin HCl (Flomax) 0.4 mg HS PO Last administered on 10/21/16 20:42; Admin Dose 0.4 MG; Start 10/21/16 at 21:00 CORAL GILBERT MD Oct 22, 2016 08:00
[2016-10-22] MEDS: FENOFIBRATE 145 MG TAB PO SCH (08:54)
[2016-10-22] MEDS: FINASTERIDE 5 MG TAB PO SCH (08:54)
[2016-10-22] MEDS: CIPROFLOXACIN 500 MG TAB PO SCH ×2 (08:54→19:00)
[2016-10-22] MEDS: metroNIDAZOLE 500 MG TAB PO SCH ×2 (14:07→21:54)
[2016-10-22] MEDS ORDERED: ACETAMINOPHEN 325 MG TAB PO PRN (16:00)
[2016-10-22 20:54] VITALS: BP 129/70; PULSE 58; RESP 18
[2016-10-22] MEDS: HYDROCODONE/APAP (5/325) TAB PO PRN (21:54)
[2016-10-22] MEDS: TAMSULOSIN (SR) 0.4 MG CAP PO SCH (21:54)
[2016-10-23] MEDS: PANTOPRAZOLE 40 MG INJ IV SCH (05:20)
[2016-10-23] MEDS: metroNIDAZOLE 500 MG TAB PO SCH ×2 (05:20→14:47)
[2016-10-23] MEDS: CIPROFLOXACIN 500 MG TAB PO SCH ×2 (05:20→17:23)
[2016-10-23] MEDS: SOD CHLORIDE 0.9% 1,000 ML IV SCH ×2 (07:32→16:25)
[2016-10-23 07:41] VITALS: BP 158/74; RESP 20
[2016-10-23] MEDS: FINASTERIDE 5 MG TAB PO SCH (08:53)
[2016-10-23] MEDS: FENOFIBRATE 145 MG TAB PO SCH (08:53)
[2016-10-23] MEDS ORDERED: METR500T PO (12:11)
[2016-10-23] MEDS ORDERED: HYDR-3498 PO (12:11)
[2016-10-23] MEDS ORDERED: LACT1CAP57 PO (12:11)
[2016-10-23] MEDS ORDERED: CIPR500T4 PO (12:11)
--- NOTE | 2016-10-23 12:12 | PDOCDIS ---
Discharge Instructions DIAGNOSIS Discharge Diagnosis: 1. Acute diverticulitis 2. Essential hypertension 3. Dyspnea 4. BPH CONDITION Patient Condition: Stable HOME CARE INSTRUCTIONS: Diet Instructions: Low Fat /Cholesterol FOLLOW UP/APPOINTMENTS Appointments 1. Follow-up with your primary care provider within a week VOLODYMYR ARCE Oct 23, 2016 12:12
--- NOTE | 2016-10-23 16:21 | DS ---
Date/Time of Note Date/Time of Note DATE: 10/23/16 TIME: 16:20 Discharge Summary Admission/Discharge Info Admit Date/Time Oct 19, 2016 at 16:28 Discharge Date/Time Final Diagnosis 1. Acute diverticulitis 2. Essential hypertension 3. Dyslipidemia 4. BPH Patient Condition: Stable Hospital Course This is a 71-year-old male with history of BPH came [facility] due to reports of abdominal pain. Patient did report that his abdominal pain started roughly on October 21, 2016. He also reported having some pain with bowel movements. He was brought in by [facility] due to the aformentioned issues. He did have CT imaging of his abdomen. He did have imaging that did show acute diverticulitis of the sigmoid colon. Patient was kept n.p.o. and he was provided with IV hydration. Is also provided with antibiotics. He also did have positive leukocyte esterase test with suspect UTI. He was placed on appropriate antibiotics. During his course of stay he did improve. He did have good response from antibiotic therapy as well as IV hydration. We were able to gradually advance his diet and he did tolerate well. He was otherwise optimized medically. He was continued on antihypertensives for his hypertension and he was resumed on his BPH medication as well. He is also placed on fenofibrate for his dyslipidemia. During his course of stay he did improve. The plan of care was discussed with the patient and patient did verbalizes understanding. On the day of discharge patient was in stable condition Discussed plan of care with Dr. Spicer Discharge process time: 40 minutes Home Meds Active Scripts Lactobacillus Rhamnosus* (Culturelle*) 1 Each Cap.sprink, 1 CAP PO DAILY for 14 Days, CAP Prov:VOLODYMYR ARCE 10/23/16 Metronidazole* (Flagyl*) 500 Mg Tablet, 500 MG PO Q8 for 7 Days, TAB Prov:VOLODYMYR ARCE 10/23/16 Ciprofloxacin Hcl* (Ciprofloxacin Hcl*) 500 Mg Tablet, 500 MG PO BID@06,18 for 7 Days, TAB Prov:VOLODYMYR ARCE 10/23/16 Reported Medications Fenofibrate Nanocrystallized* (Fenofibrate*) 145 Mg Tablet, 145 MG PO DAILY, TAB 10/19/16 Finasteride* (Proscar*) 5 Mg Tablet, 5 MG PO DAILY, TAB 05/17/14 Tamsulosin Hcl* (Flomax*) 0.4 Mg Cap.er.24h, 0.4 MG PO HS, CAP 05/17/14 Discontinued Scripts Phenazopyridine Hcl* (Pyridium*) 200 Mg Tab, 200 MG PO TID Y for URINARY PAIN, # 6 TAB Prov:GEORGIE KEMP [employer] 10/01/16 Ciprofloxacin Hcl* (Ciprofloxacin Hcl*) 500 Mg Tablet, 500 MG PO BID for 10 Days , TAB Prov:GEORGIE KEMP [employer] 10/01/16 Hydrocodone Bit-Acetaminophen* (Ogden*) 5-325 Mg Tab, 1 TAB PO Q6 Y for PAIN, # 10 TAB Prov:OMAYRA WOODSON PA-C 07/15/15 Cyclobenzaprine Hcl* (Cyclobenzaprine Hcl*) 10 Mg Tablet, 10 MG PO TID, #15 TAB Prov:OMAYRA WOODSON PA-C 07/15/15 Naproxen* (Naprosyn*) 500 Mg Tablet, 500 MG PO BID Y for PAIN AND/OR INFLAMMATION, #30 TAB Prov:OMAYRA WOODSON PA-C 07/15/15 Ciprofloxacin Hcl* (Ciprofloxacin Hcl*) 500 Mg Tablet, 500 MG PO BID for 10 Days , TAB Prov:OMAYRA WOODSON PA-C 07/15/15 Ibuprofen* (Motrin*) 600 Mg Tab, 600 MG PO Q6, #30 TAB Prov:CHANTAL DE SOUZA PA-C 11/10/14 Follow-up Plan 1. Follow-up with your primary care provider within a week Primary Care Provider VOLODYMYR Whittaker Oct 23, 2016 16:21
[2016-10-23] MEDS: HYDROCODONE/APAP (5/325) TAB PO PRN (16:24)
[2016-10-24] MEDS ORDERED: PANTOPRAZOLE (EC) 40 MG TAB PO SCH (06:00)
== END 2016-10-23 18:25 | disposition home or self-care (01) | DRG 392 ==
LOC: E/R 09:59 → MS2 16:28
PROVIDERS: ADMIT Internal Medicine; ATTEND Internal Medicine
DX: K57.32 Diverticulitis of large intestine without perforation or abscess without bleeding (principal); N39.0 Urinary tract infection, site not specified; I10 Essential (primary) hypertension; K21.9 Gastro-esophageal reflux disease without esophagitis; N40.0 Benign prostatic hyperplasia without lower urinary tract symptoms; E78.00 Pure hypercholesterolemia, unspecified
CPT/HCPCS: 36415; 71010; 74176; 80053; 80061; 81001; 83036; 83690; 83735; 84100; 84439; 84443; 84484; 85025; 85651; 87086; 93005; 96361; 96374; 96375; 96376; C9113; J0295; J0744; J1170; J2270; J2405; J7030

== ENCOUNTER 2017-11-01 08:02 | Emergency (ER) | END 2017-11-01 11:55 | disposition home or self-care (01) ==

== ENCOUNTER 2018-08-12 08:08 | Emergency (ER) | payer MEDICAID, OTHER ==
[~2018-08-12] VITALS: Wt 72.3 kg
[~2018-08-12 08:08] MED LIST changes: -CYCL-319 PO; +FENO145T37 PO; -HYDR-3498 PO; +HYDR-3601 PO; +HYDR-4011 PO; +LACT1CAP57 PO; +METR500T PO; -NAPR-260 PO; -PHEN-538 PO
[2018-08-12] MEDS ORDERED: LIDOCAINE/MYLANTA 40 ML BTL PO STA (08:23)
[2018-08-12] MEDS ORDERED: FAMOTIDINE 20 MG INJ IV STA (08:23)
[2018-08-12] MEDS ORDERED: METR500T PO (10:23)
[2018-08-12] MEDS ORDERED: CIPR500T4 PO (10:23)
[2018-08-12] MEDS ORDERED: CIPROFLOXACIN 500 MG TAB PO ONE (10:30)
[2018-08-12] MEDS ORDERED: metroNIDAZOLE 500 MG TAB PO ONE (10:30)
[2018-08-12] MEDS ORDERED: FINA5TAB4 PO (10:34)
[2018-08-12] MEDS ORDERED: TAMS0.4C2 PO (10:34)
[2018-08-12 10:51] VITALS: BP 132/87; PULSE 67; RESP 15
--- NOTE | 2018-08-12 11:57 | ERD ---
ER Documentation Chief Complaint Chief Complaint abd pain with mild distention for the past 4 days. no N/V/D. HPI During the patient's encounter translation services were utilized Language: Danish Source: Video 73-year-old male who presents with 4 days of abdominal bloating sensation, abdominal pain worse the left lower quadrant with mild nausea. The abdominal pain and bloating radiates up into his chest. It is usually postprandial. He denies any pleuritic pain, exertional symptoms. No fevers or chills. He states that he is having normal bowel movements and passing gas. ROS All systems reviewed and are negative except as per history of present illness. Medications Home Meds Active Scripts Metronidazole* (Flagyl*) 500 Mg Tablet, 500 MG PO TID for 7 Days, TAB Prov:RAE ZAPATA MD 08/12/18 Ciprofloxacin Hcl* (Ciprofloxacin Hcl*) 500 Mg Tablet, 500 MG PO BID for 7 Days, TAB Prov:RAE ZAPATA MD 08/12/18 Reported Medications Tamsulosin Hcl* (Tamsulosin Hcl*) 0.4 Mg Cap.er.24h, 0.4 MG PO HS, CAP 08/12/18 Finasteride* (Finasteride*) 5 Mg Tablet, 5 MG PO DAILY, TAB 08/12/18 Discontinued Reported Medications Fenofibrate Nanocrystallized* (Fenofibrate*) 145 Mg Tablet, 145 MG PO DAILY, TAB 10/19/16 Finasteride* (Proscar*) 5 Mg Tablet, 5 MG PO DAILY, TAB 05/17/14 Tamsulosin Hcl* (Flomax*) 0.4 Mg Cap.er.24h, 0.4 MG PO HS, CAP 05/17/14 Discontinued Scripts Ibuprofen* (Motrin*) 600 Mg Tab, 600 MG PO Q8, #30 TAB Prov:SANGEETA RYANS A. DO 11/01/17 Hydrocodone/Acetaminophen ([place]ad[place] 5-325 Tablet) 1 Each Tablet, 1 TAB PO Q6H PRN for PAIN, #7 TAB Prov:SANGEETA RYANS A. DO 11/01/17 Ciprofloxacin Hcl* (Ciprofloxacin Hcl*) 500 Mg Tablet, 500 MG PO BID for 14 Days, TAB Prov:YUNIEL RYAN. DO 11/01/17 Hydrocodone Bit-Acetaminophen (Hydrocodone Bit-APAP) 5-325MG Tablet, 1 TAB PO Q6H PRN for pain, #20 TAB Prov:VOLODYMYR ARCE 10/23/16 Lactobacillus Rhamnosus* (Culturelle*) 1 Each Cap.sprink, 1 CAP PO DAILY for 14 Days, CAP Prov:ANITHARVOLODYMYR 10/23/16 Metronidazole* (Flagyl*) 500 Mg Tablet, 500 MG PO Q8 for 7 Days, TAB Prov:REGIDORVOLODYMYR 10/23/16 Ciprofloxacin Hcl* (Ciprofloxacin Hcl*) 500 Mg Tablet, 500 MG PO BID@06,18 for 7 Days, TAB Prov:REGIDORVOLODYMYR 10/23/16 Allergies Allergies: Coded Allergies: No Known Allergies (Unverified Allergy, Unknown, 08/12/18) PMhx/Soc Medical and Surgical Hx: pt denies Surgical Hx History of Surgery: No Anesthesia Reaction: No Hx Neurological Disorder: No Hx Respiratory Disorders: No Hx Cardiac Disorders: No Hx Psychiatric Problems: No Hx Miscellaneous Medical Probl: Yes (BPH) Hx Alcohol Use: No Hx Substance Use: No Hx Tobacco Use: No Smoking Status: Never smoker FmHx Family History: No diabetes Physical Exam Vitals Vital Signs Date Temp Pulse Resp B/P (MAP) Pulse Ox O2 O2 Flow FiO2 Time Delivery Rate 08/12/18 98.2 67 15 132/87 100 Room Air 10:51 (102) 08/12/18 62 14 152/95 100 Room Air 08:15 (114) 08/12/18 98.2 73 18 149/68 98 08:12 (95) Physical Exam General: Well developed, well nourished, no acute distress Head: Normocephalic, atraumatic. Eyes: Pupils equally reactive, EOM intact ENT: Moist mucous membranes Neck: Supple, no lymphadenopathy Respiratory: Lungs clear bilaterally, no distress Cardiovascular: RRR, no murmurs, rubs, or gallops Abdominal: Soft, focal tenderness of the left lower quadrant : Deferred MSK: No edema, no unilateral swelling, 5/5 strength Neurologic: Alert and oriented, moving all extremities, normal speech, no focal weakness, no cerebellar signs Skin: No rash Psych: Normal mood Result Diagram: 08/12/18 0830 08/12/18 0830 Results 24 hrs Laboratory Tests Test 08/12/18 08:30 White Blood Count 8.7 10^3/ul Red Blood Count 4.72 10^6/ul Hemoglobin 14.3 g/dl Hematocrit 41.6 % Mean Corpuscular Volume 88.1 fl Mean Corpuscular Hemoglobin 30.3 pg Mean Corpuscular Hemoglobin Concent 34.4 g/dl Red Cell Distribution Width 12.5 % Platelet Count 177 10^3/UL Mean Platelet Volume 12.4 fl Immature Granulocytes % 0.600 % Neutrophils % 66.5 % Lymphocytes % 20.2 % Monocytes % 9.8 % Eosinophils % 2.6 % Basophils % 0.3 % Nucleated Red Blood Cells % 0.0 /100WBC Immature Granulocytes # 0.050 10^3/ul Neutrophils # 5.8 10^3/ul Lymphocytes # 1.8 10^3/ul Monocytes # 0.9 10^3/ul Eosinophils # 0.2 10^3/ul Basophils # 0.0 10^3/ul Nucleated Red Blood Cells # 0.0 10^3/ul Sodium Level 142 mmol/L Potassium Level 4.6 mmol/L Chloride Level 107 mmol/L Carbon Dioxide Level 29 mmol/L Anion Gap 6 Blood Urea Nitrogen 38 mg/dl Creatinine 1.61 mg/dl Est Glomerular Filtrat Rate mL/min mL/min Glucose Level 111 mg/dl Calcium Level 9.7 mg/dl Total Bilirubin 0.6 mg/dl Direct Bilirubin 0.00 mg/dl Indirect Bilirubin 0.6 mg/dl Aspartate Amino Transf (AST/SGOT) 25 IU/L Alanine Aminotransferase (ALT/SGPT) 27 IU/L Alkaline Phosphatase 71 IU/L Troponin I < 0.012 ng/ml Total Protein 7.1 g/dl Albumin 4.0 g/dl Globulin 3.10 g/dl Albumin/Globulin Ratio 1.29 Lipase 126 U/L Current Medications Medications Dose Sig/Aaliyah Start Time Status Last (Trade) Ordered Route PRN Stop Time Admin Dose Reason Admin Famotidine 20 mg ONCE STAT 08/12/18 DC 08/12/18 (Pepcid Iv) IV 08:23 08/12/18 08:52 08:24 40 ml ONCE STAT 08/12/18 DC 08/12/18 Miscellaneous PO 08:23 08/12/18 08:52 Medication 08:24 (Gi Cocktail (2)) 500 mg ONCE ONCE 08/12/18 DC 08/12/18 Ciprofloxacin PO 10:30 08/12/18 10:30 (Cipro) 10:31 500 mg ONCE ONCE 08/12/18 DC 08/12/18 Metronidazole PO 10:30 08/12/18 10:30 (Flagyl) 10:31 Procedures/MDM EKG, MONITORS, & DIAGNOSTIC IMAGING: EKG: I reviewed and interpreted a 12-lead EKG. Rhythm: Normal sinus rhythm ST Changes: No contiguous ST segment elevations T waves: No contiguous T wave inversions Impression: No evidence of acute cardiac ischemia CT a/p IMPRESSION: 1. Suggestion of mild focal diverticulitis in the proximal to mid sigmoid colon. No evidence of abscess or free air. 2. Diffuse colonic diverticulosis. 3. Prostatomegaly, including nodular enlarged central gland with mass effect upon the bladder base, and posterior calcifications, stable. Correlation with free/total PSA is recommended. RPTAT: IndyJ CXR; no acute process noted per radiologist read LAB INTERPRETATION: I reviewed the laboratory testing and it shows no evidence of acute process other than mild renal insufficiency MEDICAL DECISION MAKING: The patient's abdominal pain is likely consistent with either viral process but he does localize to the left lower quadrant raising the concern for diverticular process. The patient's radiation up into his chest seems to be more GI related than cardiac however given his age EKG and troponin would be appropriate. Very low pretest probability for cardiac etiology. Low concern for aortic process. ER COURSE: * Patient symptoms improved with symptom control medication. Laboratory testing and diagnostic imaging confirmed acute diverticulitis, patient tolerated Cipro and Flagyl orally here in the emergency room. At this point I feel he can be safely discharged home with outpatient management. No evidence of complications and unlikely to fail outpatient therapy. Return precautions were discussed and understood. CONSULTATION: None DISPOSITION PLAN: The patient does not have an identifiable emergent medical condition that warrants inpatient hospitalization at this time. The patient is deemed safe for discharge with outpatient follow-up. We discussed follow up with the patient's primary care doctor within 24 to 48 hours as needed. We also discussed return to the emergency room for worsening symptoms or worsening condition. Outpatient referral: None required Discharge Medications: Cipro, Flagyl Departure Diagnosis: Primary Impression: Diverticulitis Additional Impressions: Gastroesophageal reflux disease Esophagitis presence: esophagitis presence not specified Qualified Codes: K21.9 - Gastro-esophageal reflux disease without esophagitis Abdominal pain Abdominal location: generalized Qualified Codes: R10.84 - Generalized abdominal pain Condition: Stable Patient Instructions: Diverticulitis [facility] Usted se lopez hecho un examen mdico de control que le indica que no est en jose alejandro condicin que requiera tratamiento urgente en el Departamento de Emergencia. Un estudio ms profundo y el tratamiento de bermudez condicin pueden esperar sin ningn riesgo hasta que usted sea atendida/o en el consultorio de bermudez mdico o jose alejandro clnica. Es responsabilidad suya arreglar jose alejandro valeriano para el seguimiento del robert. MANEJO DE CONDICIONES NO URGENTES EN EL FUTURO 1) Si usted tiene un mdico de atencin primaria: Usted debera llamar a bermudez mdico de atencin primaria antes de venir al departamento de emergencia. Despus de las horas de consultorio, bermudez doctor o bermudez asociado/a est disponible por telfono. El mdico o enfermero de gregory en el servicio telefnico puede asesorarle por dustin medio para atender el problema, o robert contrario se puede programar jose alejandro valeriano. 2) Si usted no tiene un mdico de atencin primaria: Llame al mdico o clnica de referencia que aparece abajo nicole las horas de consultorio para hacer jose alejandro valeriano para que le vean. CLINICAS: [facility] [phone] [address] [facility] [facility] [phone] [address] [facility] [phone] [address] [facility]. [facility] [phone] [address] [facility]. [facility] [phone] [address] [facility]. [phone] [address] [facility] () Usted se lopez hecho un examen mdico de control que le indica que no est en jose alejandro condicin que requiera tratamiento urgente en el Departamento de Emergencia. Un estudio ms profundo y el tratamiento de bermudez condicin pueden esperar sin ningn riesgo hasta que usted sea atendida/o en el consultorio de bemrudez mdico o jose alejandro clnica. Es responsabilidad suya arreglar jose alejandro valeriano para el seguimiento del robert. MANEJO DE CONDICIONES NO URGENTES EN EL FUTURO 1) Si usted tiene un mdico de atencin primaria: Usted debera llamar a bermudez mdico de atencin primaria antes de venir al departamento de emergencia. Despus de las horas de consultorio, bermudez doctor o bermudez asociado/a est disponible por telfono. El mdico o enfermero de gregory en el servicio telefnico puede asesorarle por dustin medio para atender el problema, o robert contrario se puede programar jose alejandro valeriano. 2) Si usted no tiene un mdico de atencin primaria: Llame al mdico o condado institucions de referencia que aparece abajo nicole las horas de consultorio para hacer jose alejandro valeriano para que le vean. SI USTED NO PUEDE PAGAR PARA EILEEN UN MEDICO puede ir a: [facility] [id number] [place] [address] [facility] [address] [place] [address] [facility] [address] [place] [address] [address]A [facility] [address] [place], [place] [id number] Additional Instructions: Llame al doctor nombrado abajo (Referral Sources) MAANA y brittany jose alejandro AVLERIANO PARA DENTRO DE JOSE ALEJANDRO SEMANA. Dgale a la secretaria que nosotros le instruimos hacer esta valeriano.Avise o llame si bermudez condicin se empeora antes de la valeriano. RAE ZAPATA MD Aug 12, 2018 11:57
== END 2018-08-12 10:53 | disposition home or self-care (01) ==
LOC: E/R 08:08
DX: K57.32 Diverticulitis of large intestine without perforation or abscess without bleeding (principal); K21.9 Gastro-esophageal reflux disease without esophagitis
CPT/HCPCS: 36415; 71045; 74176; 80053; 83690; 84484; 85025; 93005; 96374